=== PATIENT | female | born 1980 | race Caucasian/White ===

== ENCOUNTER 2017-06-01 06:31 | Emergency (ER) | payer OTHER ==
[2017-06-01] MEDS ORDERED: 0.9% Sodium Chloride 1,000 ML IV ONE (06:47)
[2017-06-01] MEDS ORDERED: HYDROmorphone 1 mg/mL Inj IVPUSH PRN (06:50)
[2017-06-01] MEDS ORDERED: Ondansetron 2 mg/mL 2 mL Inj IVPUSH PRN (06:50)
[2017-06-01 06:57] VITALS: BP 130/78; PULSE 72; RESP 16; O2SAT 99
[2017-06-01 07:02] LABS: BASOPHILS % (AUTO) 0.8 % (0-3); EOSINOPHILS % (AUTO) 2.7 % (0-5); MONOCYTES % (AUTO) 8.4 % (4-12); Mean Corpuscular Hemoglobin 29.6 pg (27.0-35.0); Mean Corpuscular Volume 88.5 fL (81-100); NEUTROPHILS % (AUTO) 38.4 % (40-74); Platelet Count 246 bil/L (150-400)
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
[2017-06-01 07:24] LABS: INR 0.99 ratio
[2017-06-01 07:42] LABS: Lipase 23 U/L (13-60); Magnesium 1.9 mg/dL (1.6-2.6)
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
[2017-06-01 09:48] LABS: APPEARANCE,URINE CLEAR (CLEAR,HAZY); COLOR,URINE STRAW (YELLOW); PH,URINE 7.5 (5.0-8.0)
[2017-06-01 09:49] LABS: OCCULT BLOOD,URINE TRACE (NEGATIVE); UROBILINOGEN,URINE NORMAL (NORMAL)
[2017-06-01] MEDS ORDERED: oxyCODONE-Acetamin 5-325 mg Tablet PO ONE (10:05)
[2017-06-01] MEDS ORDERED: DIAZ5TAB PO (10:12)
[2017-06-01] MEDS ORDERED: OXYC1TAB24 PO (10:12)
[2017-06-01] MEDS ORDERED: ZOLM5SPR5 NASAL (10:12)
[2017-06-01 10:32] VITALS: BP 121/81; PULSE 59; RESP 20; O2SAT 99
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
== END 2017-06-01 10:33 | disposition home or self-care (01) ==
LOC: SED 06:31 → EDSEX 06:31 → EDBD 06:31 → SED 10:33
DX: S06.0X0A Concussion without loss of consciousness, initial encounter (principal); S00.03XA Contusion of scalp, initial encounter; S16.1XXA Strain of muscle, fascia and tendon at neck level, initial encounter; V43.52XA Car driver injured in collision with other type car in traffic accident, initial encounter; Y93.89 Activity, other specified; Y92.410 Unspecified street and highway as the place of occurrence of the external cause; Y99.8 Other external cause status; Z88.0 Allergy status to penicillin
CPT/HCPCS: 36415; 70450; 71010; 72125; 73522; 74177; 80053; 81001; 83690; 83735; 85025; 85610; 85730; 86850; 86870; 93005; 96361; 96374; 96375; 99285; G0390; G0480; J1170; J1885; J2405; J7030; Q9967